=== PATIENT | male | born 1960 | race Caucasian/White ===

== ENCOUNTER 2024-05-03 11:41 | Day surgery (SDC) | payer OTHER ==
[~2024-05-03] VITALS: Ht 172.7 cm; Wt 89.1 kg
[~2024-05-03 11:41] MED LIST: Glycopyrrolate 0.2 MG/ML 1MLVIAL ONE; Lactated Ringer's 1,000 ML IV ONE; Lidocaine 2% 5 ML SDV ONE; Lidocaine HCl/Pf 1% 5 ML VIAL ONE; OMEP20ER PO; Ondansetron HCl 2 MG / ML 2ML Vial ONE; ePHEDrine Sulfate 50 MG/ML 1ML Injection ONE; propofoL 50 ML IV ONE
[2024-05-03] MEDS ORDERED: Lactated Ringer's 1,000 ML IV ONE ×2 (12:18→13:19)
[2024-05-03] MEDS ORDERED: propofoL 50 ML IV ONE (13:27)
--- NOTE | 2024-05-03 13:51 | NUR ---
05/03/24 1351 Mirlande Sainz 13ML NACL USED FOR HEPATIC FLEXURE POLYP REMOVAL.
--- NOTE | 2024-05-03 15:10 | NUR ---
05/03/24 1510 Mirlande Sainz APPROX. 89O IV WAS PLACED, FLUIDS WERE HOOKED UP & THEN PT. VERBALIZED FEELING SICK TO HIS STOMACH & WAS FEELING DIZZY. PT. HAD VERBALIZED EARLIER WHILE GETTING READY THAT HE DIDN'T LIKE NEEDLES. PT. GOT PALE & THEN HIS EYES WENT INTO A STARE & HIS HANDS/ARMS STARTED SHAKING. PT.'S NAME WAS SAID, NO RESPONSE & THEN PT.'S NAME WAS SAID AGAIN & PT. LOOKED AT [facility] IN THE EYES & STATED "WHERE DID I GO.". PT. WAS PALE, LIP COLOR PURPLE, PT. PLACED ON THE MONITOR & HR 49. PT. WAS TALKING. V.S. 1222 100% ON RA, RR 16, BP 91/69. FLUIDS OPENED WIDE. 1229 PT. TALKING WITH STAFF IN ROOM, 1229 V.S. 124/86, HR 71, RR 20. PT. VERBALIZES FEELING BETTER. PT. STILL PALE BUT LIPS STARTING TO PINK UP. PT. HAD VERBALIZED THAT HE NEEDED TO USE THE BR BUT WAS INSTRUCTED THAT HE NEEDED TO WAIT A BIT SINCE HIS EPISODE. PT. SAT AT THE SIDE OF THE BED, PT. VERBALIZED THAT HE FELT FINE, PT. WAS TAKEN TO THE BR VIA WC. DR. CHENG WAS IN TO SEE THE PT. IN HIS ROOM, DR. CHENG WAS NOTIFIED OF PT.'S EPISODE. DR. CHENG VERBALIZED PT. HAD A VAGAL EPISODE.
== END 2024-05-03 14:43 | disposition home or self-care (01) ==
LOC: ORSCSDS 11:41
PROVIDERS: Internal Medicine Gastroenterology
PROC: 0D757ZZ Dilation of Esophagus, Via Natural or Artificial Opening (ICD-10-PCS; principal; 2024-05-03 12:45)
PROC: 0DBN8ZX Excision of Sigmoid Colon, Via Natural or Artificial Opening Endoscopic, Diagnostic (ICD-10-PCS; principal; 2024-05-03 12:45)
PROC: 0DB58ZX Excision of Esophagus, Via Natural or Artificial Opening Endoscopic, Diagnostic (ICD-10-PCS; principal; 2024-05-03 12:45)
PROC: 0DBL8ZX Excision of Transverse Colon, Via Natural or Artificial Opening Endoscopic, Diagnostic (ICD-10-PCS; principal; 2024-05-03 12:45)
DX: K21.9 Gastro-esophageal reflux disease without esophagitis (principal); R47.02 Dysphasia; Z12.11 Encounter for screening for malignant neoplasm of colon; D12.3 Benign neoplasm of transverse colon; K63.5 Polyp of colon; K64.4 Residual hemorrhoidal skin tags
CPT/HCPCS: 88305; J2003; J2405; J2704; J7120